=== PATIENT | male | born 1945 ===

== ENCOUNTER 2025-08-01 13:35 | Outpatient (AMB) | payer MEDICARE, BC, SELFPAY ==
--- NOTE | 2025-08-01 13:36 | A.PHYSOV_ITS ---
Intake Visit Reasons: F/U after injection 06/18/2025 Intake Note: Patient is a 79 year old male here for follow up after 06/18/25 L5-S1 HEMA. Allergies adhesive tape Allergy (Unknown, Verified 08/01/25 13:37) Unknown amoxicillin Allergy (Unknown, Verified 08/01/25 13:37) Unknown bacitracin (From Polysporin(bacitracin base)) Allergy (Unknown, Verified 08/01/25 13:37) Unknown bee pollen (bees) Allergy (Unknown, Verified 08/01/25 13:37) Unknown ciprofloxacin Allergy (Unknown, Verified 08/01/25 13:37) Unknown irbesartan Allergy (Unknown, Verified 08/01/25 13:37) Unknown lamotrigine Allergy (Unknown, Verified 08/01/25 13:37) Unknown mold Allergy (Unknown, Verified 08/01/25 13:37) Unknown polymyxin B (From Polysporin(bacitracin base)) Allergy (Unknown, Verified 08/01/25 13:37) Unknown pregabalin Allergy (Unknown, Verified 08/01/25 13:37) Unknown HPI Comments Details: History of Present Illness The patient is an 79 year old individual presenting for follow-up and evaluation of new-onset left leg pain. The patient reports doing well after recent injections, with approximately 75% improvement from L5-S1 HEMA on 06/18/2025, but has since developed a new problem. The patient describes developing extreme, deep, cramping pain in the left lindsay bone, which occurs exclusively at night and awakens the patient from sleep after about an hour to an hour and a half. This pain is not present during the day and is associated with some numbness. The pain is temporarily relieved by getting up and walking, though mobility is limited by the patient's dialysis tubing. The onset of this pain occurred after the recent injection and after the patient became more active. The patient has a history of a tibial fracture two to three years ago. The patient is on dialysis, with kidney function at 10-11%. A prior kidney ultrasound revealed cysts, which were reportedly incidental findings. For the nocturnal leg pain, the patient takes Percocet and gabapentin at bedtime. The patient also takes a daily baby aspirin. Patient denies any specific trauma. He has been using gabapentin and narcotics for pain. Pain Description - Location: Pain is in the bottom half of the left leg, specifically in the lindsay bone, with some tenderness in the calf. - Quality: Described as a deep, extreme, cramping pain, as if it is in the bone. - Onset and Timing: Started after a recent injection and occurs only at night, waking the patient from sleep after about 1-1.5 hours. - Relieving Factors: Getting up, standing, and walking. - Exacerbating Factors: Sleeping or lying down. - Associated Symptoms: Numbness in the leg. PFSH Surgical History History of cholecystectomy Social History Alcohol intake: current Alcohol intake frequency: holidays/special occasions only Patient Tobacco Use Status: Former Tobacco user Use of substances other than those prescribed or required for medical reasons: No Review of Systems Narrative Review of Systems - Musculoskeletal: Reports extreme, deep cramping pain in the left lindsay bone at night. - Neurological: Reports numbness in the leg. - Constitutional: Denies pain during the day. - Genitourinary: Reports being on dialysis. Physical Exam Exam Exam: Physical Exam Lumbar Spine: Examination of his lumbar spine, there is no visible swelling or deformity. He is LS tender to the lower lumbar facets. He has full range of motion of his lumbar spine. Special Tests: Lhermittes sign was negative Heel Toe walk is normal Left straight leg raise: Negative Right straight leg raise: Negative Special tests Emery test is negative Ganslen's test is negative SI Joint compression test negative Viviana test negative Piriformis stretch is negative Lower Extremities: Full range of motion bilateral lower extremities. No calf pain or edema. Neuro: Sensation: Intact to lower extremities bilaterally Strength L2 (Psoas): 5/5 on the left and 5/5 on the right. L3 (Quads): 5/5 on the left and 5/5 on the right. L4 (Ant tibialis): 5/5 on the left and 5/5 on the right. L5 (EHL) 5/5 on the left and 5/5 on the right. S1 (Gastroc): 5/5 on the left and 5/5 on the right. DTR L4: (Patellar) Left 1 Right 1 S1: (Achilles) Left 1 Right 1 Babinski Downgoing No pathologic clonus. No involuntary movement. Assessment & Plan Assessment & Plan (1) Lumbar radiculopathy: Code(s): M54.16 - Radiculopathy, lumbar region Category: Medical (2) Leg pain, left: Code(s): M79.605 - Pain in left leg Category: Medical Plan Pain Management - Analgesia: The patient takes Percocet and gabapentin at bedtime for nocturnal leg pain. - Activities of Daily Living: The pain is extreme and wakes the patient from sleep nightly. Plan Patient was informed and verbally consented to the use of an ambient scribe for clinic note documentation during this visit. 1. Nocturnal Left Leg Pain The patient presents with new onset of exteme nocturnal left lindsay pain that awakens the patient from sleep, despite being on gabapentin and Percocet at night. To evaluate for an underlying osseous pathology, an X-ray of the left tibia and fibula was ordered and will be performed today. 2. Chronic Back Pain The patient reports approximately 75% improvement following a recent injection. The injection is expected to last for three to six months, and the patient was advised to call the office for a repeat injection if the pain returns, as long as it has been at least three to four months. 3. Renal Cysts The patient was reassured that the cysts found on a kidney ultrasound are incidental findings and are not the cause of the patient's poor kidney function. Discussion Notes I have discussed with the patient the new onset of nocturnal left leg pain. I acknowledged that the patient is already taking gabapentin and a pain pill at night, which are appropriate initial therapies, but they are not preventing the pain from waking the patient. To further evaluate this, I have ordered an X-ray of the left tibia and fibula to ensure there are no acute bony changes, and the patient has agreed to proceed with this today. We reviewed the recent back injection, which has provided about 75% relief. I explained that this should provide relief for 3-6 months and that a repeat injection can be considered after 3-4 months if the pain returns. I also addressed the patient's concern about kidney cysts, explaining they are i ncidental findings and not related to the patient's kidney function. Orders: Orders XR Tibia Fibula Matt 2V Today M79.605 - Pain in left leg Coding Level of Care Code Est Pt Level 3 (38813) Diagnoses Lumbar radiculopathy M54.16 Leg pain, left M79.605
--- OUTSIDE RECORDS SUMMARY | 2025-08-01 17:07 | XMS_ITS | Data Portability ---
Author Organization [place] [facility], Allergy Address [address] [address] Care Team Providers Care Salesperson Flowers Name Role Phone BRADENJOHNIG Primary Care Provider [phone] Assessment Encounter Date Assessment Date Assessment LastModified by Organization Details LastModified Time 05/07/2024 05/07/2024 78-year-old male with a history of irritable larynx, former smoker, presents today for reassessment of his throat. While he does get occasional dysphagia with meds, he feels that his voice is better. Flexible laryngoscopy was performed today showing some mild thickening of the true cords, but no friable or ulcerative lesion. Reassurance was given. Regarding the epistaxis, I did recommend using saline, and taking a break from the fluticasone if symptoms of epistaxis worsen. [email or web address] Not available 05/12/2024 07:22:22 Plan of Treatment Reminders Order Date Submit Date Provider Last Modified By Organization Details Last Modified Time Details Appointments None record ed. Lab None record ed. Referral None record ed. Procedures None record ed. Surgeries None record ed. Imaging None record ed. Medication Orders None record ed. Patient TargetsNo targets recorded. Patient InstructionsNo instructions recorded. Reason for Referral None Reported. Results Created Date Observation Date Name Description Value Unit Range Abnormal Flag Note LastModifiedBy Organization Detail LastModifiedTime 04/20/20 24 02/11/2022 imagi ng/di agnos tic resul t No observ ation record ed. [email or web address] Not Available 23:08:06 04/20/20 24 06/03/2023 imagi ng/di agnos tic resul t No observ ation record ed. [email or web address] Not Available 23:08:27 04/20/20 24 06/06/2023 imagi ng/di agnos tic resul t No observ ation record ed. [email or web address] Not Available 23:08:32 Result Notes None recorded. 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 [id number] 799208 Active 2016 [employer]th[employer] of bilatera l temporom andibula r joint; Note: Date Diagnose d: 02/04/2017 12:01 PM (M26.623 ) Not Available [facility] 4 03:03:59 Sensorin eural hearing loss of bilatera l ears 374293338 Active 2016 Sensorin eural hearing loss, bilatera l; Note: Date Diagnose d: 02/04/2017 12:20 PM (H90.3) Not Available [facility] 4 03:04:01 Acute perichon dritis of left external ear 85034120392 84510 Completed 201604/02/2024 Acute perichon dritis of left external ear; Note: Date Diagnose d: 02/04/2017 12:04 PM (H61.012 ) Not Available [facility] 4 03:04:00 Bilatera l tinnitus 46813910433 02 Active 2016 Tinnitus , bilatera l; Note: Date Diagnose d: 02/04/2017 12:20 PM (H93.13) Not Available [facility] 4 03:04:01 Dysphagi a 20544961 Active 2021 Other dysphagi a; Note: Date Diagnose d: 2 2:32 PM (R13.19) Not Available [facility] 4 03:04:01 Secondar y hyperpar athyroid ism 70046218 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 Procedures Surgical History Date Name Laterality Status Provider Name and Address Organization Details Recorded Time 05/07/20 24 Fiberoptic Laryngoscopy (Comprehensive) completed JEAN BROWNE MD [address] [place] [address], [id number], [facility] 05/12/2024 07:20:45 Imaging Results None recorded. Procedure Notes None recorded. Medical Equipment None Reported. Allergies Allergen ID Allergen Name Allergen Category Reaction Reaction Severity Criticality Documentation Date Start Date Code Code System Note Provider Name and Address Organization Details Recorded Time 66216 ciproflox acin hydrochlo ride medicatio n other Not available Not available 01/13/2024 27673 RxNorm React ion: unkno wn, unspe cifie d;; Not Available [facility] 4 00:59:36 17835 pregabali n medicatio n other Not available Not available 01/13/2024 08151 2 RxNorm React ion: unkno wn, unspe cifie d;; Not Available [facility] 4 00:59:42 64940 lamotrigi ne Not available other Not available Not available 01/13/2024 60212 RxNorm React ion: unkno wn, unspe cifie d;; Not Available [facility] 4 00:59:46 Medications Name Sig Start Date Stop Date Status Note LastModified by Organization Details LastModified Time latanopro st 0.005 % eye drops INSTILL 1 DROP INTO BOTH EYES DAILY active Not Available Not Available No t Available atorvasta tin 40 mg tablet active Not Available Not Available Not Available Protonix 40 mg tablet,de layed release Take 1 tablet once a day as directed 05/074 completed Medicati on ID: [id number] D uration Value: 30 Prescri bed By Name: Jean hampton MD Brand Name: Protonix Send Method: E-Prescr ibed Sub s Allowed: subs OK Medic ationGen ericName : Protonix Not Available Not Available Not Available doxycycli ne hyclate 100 mg capsule TAKE 1 CAPSULE TWICE DAILY WITH FOOD AND WATER X 5 DAYS. 05/07 completed Not Available Not Available Not Available torsemide 20 mg tablet active Not Available Not Available Not Available bumetanid e 2 mg tablet TAKE 2 TABLETS (4 MG TOTAL) BY MOUTH 1 (ONE) TIME EACH DAY active Not Available Not Available No t Available clindamyc in HCl 300 mg capsule TAKE 2 CAPSULES BY MOUTH 1 TIME EACH DAY IF NEEDED (45 MINUTES BEFORE PROCEDUR E) FOR UP TO 2 DAYS active Not Available Not Available No t Available ammonium lactate 12 % lotion active Medicati on ID: [id number] B rand Name: ammonium lactate Send Method: E-Prescr ibed Sub s Allowed: subs OK Medic ationGen ericName : ammonium lactate Not Available Not Available Not Available clonidine 0.2 mg/24 hr weekly transderm al patch PLACE 1 PATCH ON THE SKIN 1 TIME PER WEEK. active Not Available Not Available No t Available benzonata te 200 mg capsule TAKE 1 CAPSULE BY MOUTH 3 TIMES A DAY FOR 10 DAYS 05/07 completed Not Available Not Available Not Available clonazepa m 0.5 mg tablet TAKE 1/2 TABLET BY MOUTH DAILY NEEDED ANXIETY active Not Available Not Available No t Available sertralin e 100 mg tablet active Medicati on ID: [id number] B rand Name: sertrali ne Send Method: E-Prescr ibed Sub s Allowed: subs OK Medic ationGen ericName : sertrali ne Not Available Not Available Not Available hydralazi ne 25 mg tablet TAKE 2 TABLETS BY MOUTH 3 TIMES A DAY 05/07 completed Not Available Not Available Not Available allopurin ol 100 mg tablet active Medicati on ID: [id number] B rand Name: allopuri nol Send Method: E-Prescr ibed Sub s Allowed: subs OK Medic ationGen ericName : allopuri nol Not Available Not Available Not Available aspirin 81 mg tablet,de layed release TAKE 1 TABLET BY MOUTH EVERY DAY 05/07 completed Not Available Not Available Not Available doxycycli ne monohydra te 100 mg tablet TAKE 1 TABLET BY MOUTH TWICE A DAY FOR 5 DAYS active Not Available Not Available No t Available acetamino phen 500 mg tablet 05/07 completed Medicati on ID: [id number] B rand Name: acetamin ophen Se nd Method: E-Prescr ibed Sub s Allowed: subs OK Medic ationGen ericName : acetamin ophen Not Available Not Available Not Available vancomyci n 125 mg capsule TAKE 1 CAPSULE BY MOUTH EVERY 6 HOURS 05/07 completed Not Available Not Available Not Available baclofen 20 mg tablet active Medicati on ID: [id number] B rand Name: baclofen Send Method: E-Prescr ibed Sub s Allowed: subs OK Medic ationGen ericName : baclofen Not Available Not Available Not Available oxycodone -acetamin ophen 5 mg-325 mg tablet TAKE 1 TABLET BY MOUTH EVERY 4 HOURS NEEDED FOR PAIN MAX 6 TABS PER DAY active Not Available Not Available No t Available isosorbid e mononitra te ER 60 mg tablet,ex tended release 24 hr TAKE 1 TABLET BY MOUTH EVERY DAY active Not Available Not Available No t Available lorazepam 0.5 mg tablet 05/07 completed Medicati on ID: [id number] D uration Value: 90 Brand Name: lorazepa m Send Method: E-Prescr ibed Sub s Allowed: subs OK Medic ationGen ericName : lorazepa m Not Available Not Available Not Available tamsulosi n 0.4 mg capsule active Not Available Not Available Not Available amlodipin e 10 mg tablet TAKE 1 TABLET BY MOUTH EVERY DAY active Not Available Not Available No t Available flunisoli de 25 mcg (0.025 %) nasal spray SPRAY 2 SPRAYS INTO EACH NOSTRIL EVERY DAY active Not Available Not Available No t Available hydralazi ne 100 mg tablet TAKE 1 TABLET (100 MG TOTAL) BY MOUTH IN THE MORNING, IN THE EVENING AND BEFORE BEDTIME active Not Available Not Available No t Available calcitrio l 0.5 mcg capsule TAKE 1 CAPSULE (0.5 MCG TOTAL) BY MOUTH 1 (ONE) TIME EACH DAY active Not Available Not Available No t Available Pravachol 20 mg tablet active Medicati on ID: [id number] B rand Name: Pravacho l Send Method: E-Prescr ibed Sub s Allowed: subs OK Medic ationGen ericName : Pravacho l Not Available Not Available Not Available docusate sodium 100 mg capsule TAKE 1 CAPSULE (100 MG TOTAL) BY MOUTH IN THE MORNING AND IN THE EVENING active Not Available Not Available No t Available gabapenti n 300 mg capsule Take 1 capsule by mouth three times a day active Not Available Not Available No t Available hydralazi ne 50 mg tablet TAKE 1 TABLET (50 MG TOTAL) BY MOUTH IN THE MORNING AND IN THE EVENING 05/07 completed Not Available Not Available Not Available epinephri ne 0.3 mg/0.3 mL injection , auto-inje ctor Inject 1 pen injector intramus cularly single dose as needed active Medicati on ID: [id number] D uration Value: 1 Brand Name: epinephr ine Send Method: E-Prescr ibed Sub s Allowed: subs OK Medic ationGen ericName : epinephr ine Not Available Not Available Not Available zolpidem 10 mg tablet active Not Available Not Available Not Available albuterol sulfate HFA 90 mcg/actua tion aerosol inhaler Inhale 2 puff using inhaler every six to eight hours as needed active Not Available Not Available No t Available multivita min capsule active Medicati on ID: [id number] B rand Name: multivit nixon Sen d Method: E-Prescr ibed Sub s Allowed: subs OK Medic ationGen ericName : multivit nixon Not Available Not Available Not Available doxycycli ne hyclate 100 mg tablet 05/07 completed Medicati on ID: [id number] D uration Value: 7 Brand Name: doxycycl ine hyclate Send Method: E-Prescr ibed Sub s Allowed: subs OK Medic ationGen ericName : doxycycl ine hyclate Not Available Not Available Not Available finasteri de 5 mg tablet active Not Available Not Available Not Available glipizide 5 mg tablet TAKE 1 TABLET (5 MG TOTAL) BY MOUTH IN THE MORNING AND IN THE EVENING BEFORE MEALS 05/07 completed Not Available Not Available Not Available duloxetin e 60 mg capsule,d elayed release TAKE 1 CAPSULE BY MOUTH EVERY DAY active Not Available Not Available No t Available valsartan 320 mg-hydroc hlorothia zide 25 mg tablet active Medicati on ID: [id number] D uration Value: 90 Brand Name: valsarta n-hydroc hlorothi azide Se nd Method: E-Prescr ibed Sub s Allowed: subs OK Medic ationGen ericName : valsarta n-hydroc hlorothi azide Not Available Not Available Not Available Janumet 50 mg-1,000 mg tablet active Medicati on ID: [id number] D uration Value: 30 Brand Name: Janumet Send Method: E-Prescr ibed Sub s Allowed: subs OK Medic ationGen ericName : Janumet Not Available Not Available Not Available Zyrtec 10 mg capsule active Medicati on ID: [id number] B rand Name: Zyrtec S end Method: E-Prescr ibed Sub s Allowed: subs OK Medic ationGen ericName : Zyrtec Not Available Not Available Not Available Columbia 3-6-9 Fatty Acids 400 mg-400 mg-200 mg capsule 05/07 completed Medicati on ID: [id number] B rand Name: Columbia 3-6-9 Fatty Acids Se nd Method: E-Prescr ibed Sub s Allowed: subs OK Medic ationGen ericName : Columbia 3-6-9 Fatty Acids Not Available Not Available Not Available testoster one 1.62 % (20.25 mg/1.25 gram) transderm al gel packet 20.25 MG TOPICALL Y DAILY IN AM active Not Available Not Available No t Available Incruse Ellipta 62.5 mcg/actua tion powder for inhalatio n active Medicati on ID: [id number] B rand Name: Incruse Ellipta Send Method: E-Prescr ibed Sub s Allowed: subs OK Medic ationGen ericName : Incruse Ellipta Not Available Not Available Not Available Xiidra 5 % eye drops in a dropperet te INSTILL ONE DROP INTO RIGHT EYE TWICE A DAY 05/07 completed Not Available Not Available Not Available Wixela Inhub 250 mcg-50 mcg/dose powder for inhalatio n 05/07 completed Not Available Not Available Not Available Tiadylt ER 240 mg capsule,e xtended release active Not Available Not Available Not Available Vitals Date Recorded Body height Body mass index (BMI) Body weight Provider Name and Address Organization Details Last Updated DateTime 05/07/2024 175.26 cm 28.1 kg/m2 08009.55 g Shelley Emerson [place] [facility] 05/07/2024 13:39:12 Social History None recorded. Functional Status None recorded. Mental Status None recorded. Family History Nothing Reported Notes:Problems with anesthes ia: negative. Cancer:. Pertinent negatives: lung cancer, thyroid cancer, unknown type of cancer. Ears:. Pertinent negatives: hearing loss after age 20, hearing loss before age 20. Cardiovascular:. Patient Name - Abdi Tovar Date of - 1945 [facility] - [id number] Date of Service - 11/18/2023 Current Date 05/12/2024 07:16:41 AM EDT Chart Number [id number] MRN Page Number 2 of [phone] Pertinent negatives: heart disease, hypertension. Respiratory:. Pertinent negatives: asthma. Neurologic:. Pertinent negatives: stroke. Endocrine:. Pertinent negatives: diabetes (age at onset unspecified). Hematologic/Lymphatic:. Pertinent negatives: bleeding or blood clotting problems. Medical History No medical history recorded. Past Encounters Encounter ID Performer Location Encounter Start Date Encounter Closed Date Diagnosis/Indication Diagnosis SNOMED-CT Code Diagnosis ICD10 Code Diagnosis IMO Codes Diagnosis Note [id number] JEAN BROWNE MD [facility] [address] [address] 05/07/2024 13:16:20 05/07/2024 14:03:48 Bleeding from nose 049861669 R04.0 Dysphagia 46483135 R13.1 9 Dysphonia 19844767 R49.0 Health Concerns Section Related Observation LastModified by Organization Detai ls LastModified Time None Recorded Concern Status LastModified by Organization Details LastModified Time None Recorded Advance Directives Directive None Recorded Payers Insurance Date Sequence Insurance Name Policy Number Policy Sanchez Covered Member ID Sanchez Member ID Guarantor Name 05/07/2024 2 [place] [id number] Abdi Morrow [place] [id number] Abdi Frenchelijah 05/07/2024 1 [place] Abdi Frenchelijah [id number] Abdi Morrow [place] 06/03/2024 2 [place] Abdi Tovar Notes Date Note Type Note Provider Name and Address Organization Details Recorded Time 05/07/2024 text/html ROS as noted in the HPI 78-year-old male presents today for follow-up. Since his last visit, he did have a fracture of his tibia. He does get some dysphagia with meds with water. He denies any changes in his voice. He did have a nosebleed 3 days ago. He does continue to use fluticasone. PV: 78-year-old former smoker with history of irritable larynx and muscle tension dysphonia presents for follow-up of worsened dysphonia and erythema with nodular changes noted along the right vocal cord. Voice changes started after hernia surgery in August. Voice has slowly returned to baseline. Repeat flexible fiber-optic laryngoscopy today with significant normalization of exam. Mild bilateral nodularity and thickening noted. Both vocal fold are fully mobile. The erythema has resolved. Patient reassured. Should follow-up in six months to reassess voice and throat symptoms. Regarding his epistaxis, recommend that he hold Flonase until the bleeding has resolved for a few weeks. Should apply Aquaphor to the anterior septum nightly and continue with nasal saline irrigations or sprays as tolerated. Humidification also discussed. JEAN BROWNE MD [address] [place] [address], [place], [address], [place] [facility] 05/12/2024 07:23:33
--- OUTSIDE RECORDS SUMMARY | 2025-08-01 17:07 | XMS_ITS | Data Portability ---
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 He complains of pain with active range of motion to the left knee and tenderness to the superior patellar region. He has been using his Percocet as well as Aspercreme with minimal improvement. He denies any fever, chills, sweats, nausea, vomiting, paresthesias or weakness to his extremities. He also denies any chest pain or shortness of breath. Exam: Pleasant, elderly appearing male, NaD. Not toxic appearing. Lungs clear to auscultation bilaterally. Heart rate regular with no obvious murmur. Ambulates with a cane without difficulty. Left leg with tenderness to the distal quadriceps tendon. No laxity to the tendon or knee. Full extension and flexion with some discomfort. No significant pain with passive ROM. 1+ edema to the left lower extremity. No calf pain on exam. No erythema or warmth. DDx considered, but not limited to: Septic arthritis. Gout. Fracture. Tendinitis. Tendon rupture. Osteoarthritis. DVT. DVT unlikely as no significant calf pain and tenderness localized to the quadriceps tendon. Septic arthritis unlikely as no significant discomfort with passive ROM and joint does not appear wanted touch. Gout unlikely given no erythema or warmth. A fracture is unlikely as patient denies any trauma. Work up/Results: none Plan/Discussion: The patient's exam is consistent with a likely quadriceps tendinitis. He was prescribed diclofenac gel and instructed to take this 4 times a day as needed. He was instructed to elevate the leg above his heart to decrease edema. We will obtain a vascular ultrasound to rule out a DVT although my clinical suspicion is fairly low. He was instructed to follow up with orthopedics as he may benefit from a cortisone injection. If he develops increasing pain, fever, shortness of breath, chest pain or any other worrisome symptoms she was advised to go to the ED for further management. In order to obtain further information and compare any laboratory results/values, I have accessed old patient records. This information was pertinent in my medical decision making today. This note was dictated using speech recognition software. Minor errors in manager creative may be present. Attempt at proofreading was made to minimize any errors. Time On Scene with Patient: 00:25:11 Not available 08/03/2019 15:18:05 08/09/2022 08/09/2022 Overview/History : 76 y/o male known to new to provider with hx of COPD, CHF, depression, DM, HTN, hyperlipidemia, stage 3 kidney disease, basal cell skin CA. pt reports left knee pain and swelling x 1 week. he states the area feels warm. pcp tested him for gout and per pt his uric acid was normal. advised to get joint aspiration and told to call [facility] by pcp. he denies any injury. no redness, bruising. he denies cp, sob, calf swelling or tenderness. ROM slightly limited due to pain. pain is constant dull and achy sometimes sharp. worse when standing. he is taking oxycodone for pain and using voltaren gel. Exam: very pleasant 76 y/o male well appearing, alert, NAD. eyes: no injection, icterus or discharge. mouth: moist mucous membranes, no erythema. uvula is midline. no cervical lymphadenopathy. lungs: clear to auscultation bilaterally. heart: RRR no murmurs rubs or gallops. no peripheral edema. abdomen: soft, normal bowel sounds, non tender. strength is normal and equal bilaterally. pulses normal and equal bilaterally. no calf tenderness or edema, negative homans. left knee mild edema noted. no erythema, ecchymosis or warmth. + tenderness on palpation of the patella and infrapatellar region. ROM is normal but tenderness is reproduced with flexion and extension. no popliteal tenderness or edema. Vitals: BP 134/60, HR 72, RR 18, T 97.5, O2 97% DDx considered, but not limited to: DVT: considered but no leg edema, calf tenderness. no tachycardia or hypoxia. septic joint: considered but pt is afebrile, no erythema or streaking erythema. Arthritis: considered as pt has hx of osteoarthritis. Work up/Results: Xray left knee pending. Plan/Discussion: left knee pain: elevate the leg when possible. apply ice to the affected area but not directly to the skin. take tylenol as directed on the package for pain. continue your voltarin gel take as prescribed by . pt will call and schedule appt with [facility] for xray. follow up with pcp in 3-5 days or sooner prn. go to the ER with worsening symptoms cp, sob, leg swelling, redness, fever, increased pain or swelling. Proper Personal Protective Equipment (PPE), including gloves, eye protection and masks were donned and doffed appropriately and all equipment cleaned using approved technique with germicidal disposable wipes prior to and after care of this patient according to [facility] infection prevention protocols. [email or web address] Not available 08/09/2022 22:24:33 Plan of Treatment Reminders Order Date Submit Date Provider Last Modified By Organization Details Last Modified Time Details Appointments None recorded. Lab None recorded. Referral None recorded. Procedures None recorded. Surgeries None recorded. Imaging XR, knee, 3 view - left knee pain and swelling no injury 2021 022 [facility] ([email or web address]), [address], [place], [address], 2 12:46:01 US, duplex, venous, lower extremity 2018 019 [place] [facility] ([facility]), [address], [place], [address], 9 10:11:26 Medication Orders Voltaren 1 % topical gel 2018 019 INTERFACE [id number], [address], [place], [address], 9 14:35:27 Patient TargetsNo targets recorded. Patient Instructions Encounter Date Encounter Id Patient Instructions Last Modified By Organization Details Last Modified Time 08/03/2019 [id number] Your exam is consistent with a likely tendinitis of the patellar tendon. Elevate the leg to help with the swelling above your heart if possible. Uses the diclofenac gel 4 times a day as needed for pain. You can also take acetaminophen 650 mg 3 times a day in addition to your Percocet. We will obtain an ultrasound to be sure there was no blood clot to the leg and we will call you with the results. You should follow up with orthopedics if the pain does not improve as you may benefit from a cortisone injection. If you develop increasing pain, fever, redness or any other worrisome symptoms you need to go to the ED for further management. Not available 08/03/2019 14:36:56 Reason for Referral None Reported. Results Created Date Observation Date Name Description Value Unit Range Abnormal Flag Note LastModifiedBy Organization Detail LastModifiedTime 08/05/20 19 08/05/2019 venou s doppl er extre m/urbina VENOUS DOPPLE R EXTREM /URBINA, LEFT FINDIN GS: There is no eviden ce for deep venous thromb osis in the left common femora l, deep femora l, femora l, poplit eal and calf veins. The right common femora l vein is patent . The subcut aneous soft tissue s are unrema rkable . CONCLU TAMICA: No eviden ce for deep venous thromb osis in the visual ized veins of the left lower extrem ity. ELECTR ONICAL LY SIGNED BY SELENE DUGGAN M.D. 019 1:17:1 3 PM EST. VENOUS DOPPLE R EXTREM /URBINA, LEFT Result s: There is no eviden ce for deep venous thromb osis in the left common femora l, deep femora l, femora l, poplit eal and calf veins. The right common femora l vein is patent . The subcut aneous soft tissue s are unrema rkable . Conclu tamica: No eviden ce for deep venous thromb osis in the visual ized veins of the left lower extrem ity. Electr onical ly signed by SELENE DUGGAN M.D. 019 1:17:1 3 PM EST. [facility] ([facility]) [address], [place], [address], 08/05/2019 18:02:55 08/10/20 22 08/10/2022 knee exam 3V AP lat obliq ue KNEE EXAM 3V AP LAT OBLIQU E, LEFT FINDIN GS: The knee joint is in alignm ent, but there is narrow ing of the joint space due to modest degene rative change s. There is modest degene rative spurri ng involv ing tibial spine and femora l condyl es. No fractu re or disloc ation is seen. Small joint effusi on is seen. Chondr ocalci nosis. CONCLU TAMICA: Modest osteoa rthrit is of the left knee. Chondr ocalci nosis. ELECTR ONICAL LY SIGNED BY NITIN Martinez M.D. 2021 12:33: 51 PM EST. KNEE EXAM 3V AP LAT OBLIQU E, LEFT Result s: The knee joint is in alignm ent, but there is narrow ing of the joint space due to modest degene rative change s. There is modest degene rative spurri ng involv ing tibial spine and femora l condyl es. No fractu re or disloc ation is seen. Small joint effusi on is seen. Chondr ocalci nosis. Conclu tamica: Modest osteoa rthrit is of the left knee. Chondr ocalci nosis. Electr onical ly signed by NITIN Martinez M.D. 2021 12:33: 51 PM EST. [facility] [address], [place], [address], 08/15/2022 08:40:32 Result Notes None recorded. Procedures Surgical History Date Name Laterality Status Provider Name and Address Organization Details Recorded Time Cholecystectomy completed [place]ELISSE Wise [address] [place], [address], [place] [facility] 08/09/2022 17:34:28 vasectomy completed KEREN LANTIGUA, HOLA [address] [place], [address], [place] [facility] 08/03/2019 14:22:01 Imaging Results None recorded. Procedure Notes None recorded. Medical Equipment None Reported. Allergies Allergen ID Allergen Name Allergen Category Reaction Reaction Severity Criticality Documentation Date Start Date Code Code System Note Provider Name and Address Organization Details Recorded Time 82666 Augmentin medicatio n rash Not available Not available 08/03/2019 61181 2 RxNorm KEREN LANTIGUA, HOLA [address] [place], [address], [place] [facility] 9 14:15:46 67917 Lyrica medicatio n rash Not available Not available 08/03/2019 72848 1 RxNorm KEREN LANTIGUA, HOLA [address], [facility] [place], [address], [place] [facility] 9 14:15:58 52325 Cipro medicatio n rash Not available Not available 08/03/2019 73266 3 RxNorm KEREN LANTIGUA, HOLA [address] [place], [address], [place] [facility] 9 14:24:06 Medications Name Sig Start Date Stop Date Status Note LastModified by Organization Details LastModified Time latanoprost 0.005 % eye drops active Not Available Not Available Not Available atorvastati n 40 mg tablet active Not Available Not Available Not Available desonide 0.05 % topical cream active Not Available Not Available Not Available prednisone 10 mg tablet 08/03 completed Not Available Not Available Not Available doxycycline hyclate 100 mg capsule 08/03 completed Not Available Not Available Not Available trazodone 50 mg tablet 08/09 completed Not Available Not Available Not Available diltiazem CD 180 mg capsule,ext ended release 24 hr active Not Available Not Available Not Available spironolact one 25 mg-hydrochl orothiazide 25 mg tablet TAKE 0.5 TABLETS BY MOUTH 1 (ONE) TIME EACH DAY 08/09 completed Not Available Not Available Not Available Elidel 1 % topical cream active Not Available Not Available Not Available prednisone 20 mg tablet TAKE 1 TABLET EVERY DAY BY ORAL ROUTE DIRECTED FOR 4 DAYS. active Not Available Not Available No t Available clonazepam 0.5 mg tablet TAKE 0.5 TABLET BY MOUTH DAILY NEEDED FOR ANXIETY active Not Available Not Available No t Available torsemide 10 mg tablet TAKE 1 TABLET BY MOUTH EVERY DAY active Not Available Not Available No t Available sulfamethox azole 800 mg-trimetho prim 160 mg tablet TAKE 1 TABLET BY MOUTH TWICE A DAY FOR 7 DAYS 08/09 completed Not Available Not Available Not Available baclofen 20 mg tablet 08/09 completed Not Available Not Available Not Available oxycodone-a cetaminophe n 5 mg-325 mg tablet TAKE 1 TABLET BY MOUTH EVERY 4 HOURS NEEDED FOR PAIN MAX 6 TABS PER DAY active Not Available Not Available No t Available lorazepam 0.5 mg tablet 08/09 completed Not Available Not Available Not Available tamsulosin 0.4 mg capsule active Not Available Not Available Not Available flunisolide 25 mcg (0.025 %) nasal spray active Not Available Not Available Not Available cephalexin 500 mg capsule TAKE 1 CAPSULE BY MOUTH TWICE A DAY FOR 7 DAYS 08/09 completed Not Available Not Available Not Available losartan 25 mg tablet active Not Available Not Available No t Available Advair Diskus 250 mcg-50 mcg/dose powder for inhalation active Not Available Not Available N ot Available gabapentin 300 mg capsule active Not Available Not Available Not Available diclofenac sodium 75 mg tablet,jaret yed release TAKE 1 TABLET BY MOUTH TWICE A DAY FOR 14 DAYS 08/09 completed Not Available Not Available Not Available bumetanide 1 mg tablet TAKE 1 TABLET BY MOUTH 1 TIME EACH DAY. 08/09 completed Not Available Not Available Not Available hydrochloro thiazide 25 mg tablet 08/03 completed Not Available Not Available Not Available mometasone 0.1 % topical ointment PLEASE SEE ATTACHED FOR DETAILED DIRECTION S active Not Available Not Available No t Available mupirocin 2 % topical ointment 08/09 completed Not Available Not Available Not Available furosemide 20 mg tablet TAKE 1 TABLET BY MOUTH EVERY DAY 08/09 completed Not Available Not Available Not Available budesonide DR - ER 3 mg capsule,del ayed,extend ed release 08/03 completed Not Available Not Available Not Available zolpidem 10 mg tablet TAKE 1 TABLET BY MOUTH EVERY DAY AT BEDTIME NEEDED SLEEP active Not Available Not Available No t Available albuterol sulfate HFA 90 mcg/actuati on aerosol inhaler active Not Available Not Available Not Available ketoconazol e 2 % topical cream 08/09 completed Not Available Not Available Not Available fluocinonid e 0.05 % topical cream APPLY TO AFFECTED AREA TWICE A DAY active Not Available Not Available No t Available calcitriol 0.25 mcg capsule TAKE 1 CAPSULE (0.25 MCG TOTAL) BY MOUTH EVERY OTHER DAY active Not Available Not Available No t Available finasteride 5 mg tablet active Not Available Not Available Not Available irbesartan 300 mg tablet 08/03 completed Not Available Not Available Not Available amoxicillin 875 mg-potassiu m clavulanate 125 mg tablet TAKE 1 TABLET BY MOUTH TWICE A DAY FOR 7 DAYS 08/09 completed Not Available Not Available Not Available tobramycin 0.3 %-dexametha sone 0.1 % eye drops,suspe nsion active Not Available Not Available Not Available duloxetine 60 mg capsule,del ayed release TAKE 1 CAPSULE BY MOUTH TWICE A DAY active Not Available Not Available No t Available Diovan HCT active Not Available Not Av ailable Not Available Percocet 08/09 completed Not Available Not Available Not Available glipizide active Not Available Not Linda ilable Not Available gabapentin 08/09 completed Not Available Not Available Not Available Novolog FlexPen U-100 Insulin active Not Available Not Available Not Available Janumet 50 mg-1,000 mg tablet 08/03 completed Not Available Not Available Not Available Voltaren 1 % topical gel APPLY 2 GRAMS TO THE AFFECTED AREA(S) BY TOPICAL ROUTE 4 TIMES PER DAY 2018 active Not Available Not Available Not Avai lable GaviLyte-G 236 gram-22.74 gram-6.74 gram-5.86 gram oral solution 08/03 completed Not Available Not Available Not Available Colcrys 0.6 mg tablet 08/03 completed Not Available Not Available Not Available doxepin 3 mg tablet TAKE 1 TABLET BY MOUTH AT BEDTIME *TAKE 30 MINUTES BEFORE BEDTIME AND NOT WITHIN 3HOURS OF A MEAL 08/09 completed Not Available Not Available Not Available doxepin 6 mg tablet TAKE 1 TABLET BY MOUTH EVERYDAY AT BEDTIME 08/09 completed Not Available Not Available Not Available Anoro Ellipta 62.5 mcg-25 mcg/actuati on powder for inhalation 08/09 completed Not Available Not Available Not Available Tiadylt ER 240 mg capsule,ext ended release TAKE 1 CAPSULE BY MOUTH EVERY DAY active Not Available Not Available No t Available Vitals Date Recorded Respiratory rate Oxygen saturation Body temperature Heart rate Systolic And Diastolic Provider Name and Address Organization Details Last Updated DateTime 9 20 /min 97 % 97.5 [degF] 64 /min 144/76 mm[Hg] Not Available [facility] 9 14:24:43 Date Recorded Oxygen saturation Respiratory rate Body temperature Heart rate Systolic And Diastolic Provider Name and Address Organization Details Last Updated DateTime 2 97 % 18 /min 97.5 [degF] 72 /min 134/60 mm[Hg] Not Available [facility] 2 17:30:11 Social History Question Answer Notes LastModified by Organizat ion Details LastModified Time Tobacco Smoking Status Former Smoker KEREN LANTIGUA, HOLA [address] [facility] [place], [address], [place] [facility] 08/03/2019 14:16:24 Do You Have An Advance Directive? Yes Information not available 08/03/2019 What Is Your Code Status? Full Code Information not available 08/03/2019 Within The Past 12 Months, Has It Happened That The Food You Bought Just Didn't Last And You Didn't Have Money To Get More. Normal Information not available 08/03/2019 Within The Past 12 Months, Have You Worried That Your Food Would Run Out Before You Got Money To Buy More. Yes Information not available 08/03/2019 Fall Risk: Do You Feel Unsteady When Standing Or Walking? Yes Information not available 08/03/2019 Excessive Alcohol Or Drug Use No [email or web address] Information not available 08/09/2022 Does This Patient Have A PCP? Yes Information not available 08/09/2022 Has The Patient Seen Their PCP In The Past 6 Months? Yes [email or web address] Information not available 08/09/2022 Is This Patient In Hospice? No [email or web address] Information not available 08/09/2022 Marital Status Informatio n not available 08/03/2019 What Was The Date Of Your Most Recent Tobacco Screening? 08/03/2019 Information not available 08/04/2019 How Much Tobacco Do You Smoke? 1 PPD Information not available 08/03/2019 How Many Years Have You Smoked Tobacco? 47 Information not available 08/03/2019 Sex: Unknown Functional Status None recorded. Mental Status None recorded. Family History Relationship Description Onset Age of this Age Resolved Age Notes LastModified by Organization Details LastModified Time Father Coronary arterioscler osis [email or web address] Not available 08/03 14:16:11 Medical History Condition Response Coronary Artery Disease N COPD Y Depression Y Hypothyroidism N A-fib N Cancer Y Stroke N High Cholesterol Y Kidney Disease Y Diabetes Y CHF Y Dementia N Asthma N Pulmonary Embolism N Hypertension Y Past Encounters Encounter ID Performer Location Encounter Start Date Encounter Closed Date Diagnosis/Indication Diagnosis SNOMED-CT Code Diagnosis ICD10 Code Diagnosis IMO Codes Diagnosis Note [id number] KEREN LANTIGUA NP [facility] [address] [place] [address] 08/03/2019 14:14:14 08/06/2019 14:38:19 Swelling of lower leg 073297975 R22.42 Tendinitis of knee 29558 0005 M67.869 [id number] IVELISSE Wise [facility] [address] [place] [address] 08/09/2022 17:26:27 08/12/2022 12:35:26 Pain of left knee joint [id number] 58977 M25.562 Health Concerns Section Related Observation LastModified by Organization Detai ls LastModified Time None Recorded Concern Status LastModified by Organization Details LastModified Time None Recorded Advance Directives Directive Y: Payers Insurance Date Sequence Insurance Name Policy Number Policy Sanchez Covered Member ID Sanchez Member ID Guarantor Name 08/09/2022 1 [place] [employer] Abdi Tovar [id number] Abdi Tovar 08/27/2019 1 *SELF PAY* Abdi Tovar [id number] Abdi Tovar 08/27/2019 1 [place]: [facility] Abdi Tovar [id number] Abdi Tovar 08/27/2019 2 [place]) [id number] Abdi Tovar [id number] Abdi Tovar 08/27/2022 1 [place] [facility] Abdi Tovar [id number] Abdi Tovar 08/09/[address] [facility] [id number] Lisset Morenoi [id number] Abdi Tovar 08/09/[address] [facility] [place] [id number] Lisset Morenoi [id number] Abdi Tovar 08/27/[address] [facility] [place] [id number] Lisset Tovar [id number] Abdi Tovar Notes Date Note Type Note Provider Name and Address Organization Details Recorded Time 08/03/2019 text/html 73-year-old male, [facility] with a past medical history that includes but not limited to diabetes, hypertension, gout, osteoarthritis, lumbar radiculopathy on chronic opioids, PAD, was evaluated for complaints of left knee pain and swelling over the past 1-2 weeks. The pain is rated as a 9/10 in severity. It gets worse with ambulation and located mostly to the patella. His also noticed swelling extending to the ankle. He denies any trauma. He also denies any fever, chills, sweats, nausea, vomiting, chest pain, shortness of breath, myalgias or any rashes. KEREN LANTIGUA, HOLA [address] [place] [address], [address], [place] [facility] 08/03/2019 15:18:13 08/09/2022 text/html 76 y/o male known to new to provider with hx of COPD, CHF, depression, DM, HTN, hyperlipidemia, stage 3 kidney disease, basal cell skin CA. pt reports left knee pain and swelling x 1 week. he states the area feels warm. pcp tested him for gout and per pt his uric acid was normal. advised to get joint aspiration and told to call [facility] by pcp. he denies any injury. no redness, bruising. he denies cp, sob, calf swelling or tenderness. ROM slightly limited due to pain. pain is constant dull and achy sometimes sharp. worse when standing. IVELISSE Wise [address], [place], [address], [place] [facility] 08/09/2022 22:25:01
== END 2025-08-01 14:42 | disposition home or self-care (01) ==
LOC: HO.HPHYS 13:35
PROVIDERS: PCP Registered Nurse; Visit Provider Physician Assistant
DX: M54.16 Radiculopathy, lumbar region (principal); M79.605 Pain in left leg
CPT/HCPCS: 99213

== ENCOUNTER → 2025-08-01 13:35 | Outpatient (BNVA) | payer MEDICARE, BC, SELFPAY | PROVIDERS: PCP Registered Nurse; Visit Provider Physician Assistant | DX: M54.16 Radiculopathy, lumbar region (principal); M79.605 Pain in left leg; Z87.891 Personal history of nicotine dependence | CPT/HCPCS: 99212 ==